=== PATIENT | male | born 1955 | race Caucasian/White ===

== ENCOUNTER → 2019-04-22 | Outpatient (CLI) | payer BC ==
--- NOTE | 2019-04-22 15:47 | CTL ---
EXAMINATION TYPE: CT Low Dose Lung DATE OF EXAM ORDERED: 04/22/2019 HISTORY: 64-year-old male Personal hx of tobacco use. Lung cancer screening CT DLP: 128.[address] CTDI: 3.6 mGy Automated exposure control for dose reduction was used. SCREENING VISIT: Baseline COMPARISON: None TECHNIQUE: Low dose computed tomography scan was performed through the chest at 1 mm thick sections a nd reconstructed images in the coronal/sagittal plane. Additional coronal MIP reconstruction performe d. CT DIAGNOSTIC QUALITY: Satisfactory FINDINGS: Heart upper limits of normal in size without pericardial effusion. Coronary vessel calcifications are present and are remarkable for coronary artery disease. Ascending aorta mildly aneurysmal at 4.0 cm. Mild atherosclerotic arch calcifications with convention al arch vessel branching anatomy. Ectatic upper descending thoracic aorta at 3.2 cm. Enlarged caliber to the main right and left pulmonary arteries are 2.9 and 3.0 cm, respectively, sugg esting underlying pulmonary arterial hypertension. No thoracic lymphadenopathy by CT size criteria. Mild centrilobular emphysema and mild diffuse bronchial wall thickening. 3 mm right upper lobe pulmonary nodule, axial image 108. 4 mm subpleural pulmonary nodule posterior left upper lobe, axial image 53. 5 mm subpleural pulmonary nodule peripheral left lower lobe, axial image 166. No consolidation or pleural effusion. Visualized upper abdomen shows low attenuation of the hepatic parenchyma. Bones: Endplate spondylosis mid to lower thoracic spine. Associated mild to moderate degenerative dis c disease and scattered Schmorl's nodes. IMPRESSION: 1. Lung RADS 2 - benign; a few pulmonary nodules measuring up to 5 mm on baseline screening. 2. COPD with very mild emphysema. 3. 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 CAD. 4. Hepatic steatosis. RECOMMENDATION: 1. Continue annual low-dose lung cancer screening CT. 2. Smoking cessation. 3. Correlate with LFTs, lipid profile, and patient risk factors for hepatic steatosis. FOLLOW UP CT CHEST RECOMMENDATION: [address] LUNG RAD: Lung-Rad 2 Benign Appearance or Behavior
== END | disposition home or self-care (01) ==
LOC: RADCTMAIN 14:20
PROVIDERS: ATTEND Family Medicine
DX: Z13.83 Encounter for screening for respiratory disorder NEC (principal); J43.9 Emphysema, unspecified; I71.2 Thoracic aortic aneurysm, without rupture; I25.10 Atherosclerotic heart disease of native coronary artery without angina pectoris; I27.20 Pulmonary hypertension, unspecified; K76.0 Fatty (change of) liver, not elsewhere classified; R91.8 Other nonspecific abnormal finding of lung field; F17.210 Nicotine dependence, cigarettes, uncomplicated

== ENCOUNTER → 2023-01-07 | Outpatient (CLI) | payer MEDICARE, OTHER ==
[2023-01-07 11:44] LABS: African American GFR (CKD) >90 (>60 ml/min/1.73 sqM); Blood Urea Nitrogen 12 mg/dL (9-20); Non-African American GFR(CKD) >90 (>60 ml/min/1.73 sqM)
--- NOTE | 2023-01-07 15:19 | CT ---
EXAMINATION TYPE: CT abdomen pelvis w con DATE OF EXAM: 01/07/2023 COMPARISON: None. HISTORY: Generalized abdominal tenderness, Change in bowel habits CT DLP: 1940.30 mGycm, Automated Exposure Control for Dose Reduction was Utilized. CONTRAST: CT scan of the abdomen and pelvis is performed with oral and with IV Contrast, patient injected with 100 ml mL of Isovue 300. FINDINGS: LUNG BASES: Please refer to same day CT low-dose lung screening CT for complete details on the lung b ases. LIVER/GB: Liver is markedly hypodense consistent with fatty infiltrative hepatocellular disease. Cont racted gallbladder is present. No biliary dilatation. PANCREAS: No significant abnormality is seen. SPLEEN: No significant abnormality is seen. ADRENALS: No significant abnormality is seen. KIDNEYS: No significant abnormality is seen. BOWEL: Oral contrast reaches level of sigmoid colon. There is poor distention with moderate wall thic kening from the splenic flexure involving entire left colon through the sigmoid colon into the rectum . No significant surrounding fluid or fat stranding is seen. No free air. No mesenteric air. No well- formed fluid collection or abscess seen. PROSTATE/SEMINAL VESICLES: No gross abnormality seen. LYMPH NODES: No greater than 1cm abdominal or pelvic lymph nodes are appreciated. OSSEOUS STRUCTURES: No significant abnormality is seen. OTHER: [id number] peripheral calcified plaque of the aorta extends into branch vessels. There i s small vessel suspected left gastric artery directly originating from the abdominal aorta is sagitta l image 75, normal variant. IMPRESSION: 1. Long segment uncomplicated mild to moderate colitis from splenic flexure to rectum may be present. Differential includes infectious, inflammatory, and ischemic etiologies. Clinical correl ation and follow-up advised.
--- NOTE | 2023-01-07 15:27 | CTL ---
EXAMINATION TYPE: CT Low Dose Lung DATE OF EXAM ORDERED: 01/07/2023 HISTORY: Long-term tobacco use. Lung cancer screening CT DLP: 140.[address] CTDI: 3.90 mGy Automated exposure control for dose reduction was used. SCREENING VISIT: First after baseline COMPARISON: Prior study April 22, 2019 TECHNIQUE: Low dose computed tomography scan was performed through the chest at 1 mm thick sections a nd reconstructed images in multiple planes at 1 mm and [address] DIAGNOSTIC QUALITY: Satisfactory FINDINGS: LUNG NODULES: Present, detailed below: Few scattered small nodules redemonstrated. Stable 4 x 3 mm posterior peripheral left upper lobe nodule axial image 58. Stable 4 mm peripheral le ft lower lobe nodule axial image 181. Stable 4 mm peripheral right lower lung nodule axial image 223. No new or enlarging greater than 5 mm pulmonary nodules. LUNGS: COPD: Severity: Mild Fibrosis: Severity: None Lymph nodes: None Other findings: Ascending aorta measures up to 4.2 cm in AP diameter axial image 29 series 5. Promine nt pulmonary arteries redemonstrated suggesting underlying pulmonary artery hypertension. RIGHT PLEURAL SPACE: Effusion: None Calcification: None Thickening: None Pneumothorax: None LEFT PLEURAL SPACE: Effusion: None Calcification: None Thickening: None Pneumothorax: None HEART: Heart Size: Upper limits of normal Coronary Calcification: Moderate to severe redemonstrated Pericardial Effusion: None OTHER FINDINGS: Upper abdomen: Visualized liver is diffusely low dense consistent with fatty infiltration Bony thorax: None Supraclavicular region: None Other: None IMPRESSION: Mild emphysematous change with stable scattered small bilateral nodules redemonstrated. N o new or enlarging greater than [address] LUNG RAD AND [address] CHEST RECOMMENDATION: Lung-Rad 2 Benign Appearance or Behavior: Continue annual sc reening with LDCT in 12 months. S Modifier (other clinically significant findings): S Coronary artery calcification along with 4.2 cm ascending aortic aneurysm both redemonstrated.
== END | disposition home or self-care (01) ==
LOC: RADCTMAIN 11:01
PROVIDERS: ATTEND Family Medicine
DX: Z12.2 Encounter for screening for malignant neoplasm of respiratory organs (principal); J43.9 Emphysema, unspecified; K63.89 Other specified diseases of intestine; R10.817 Generalized abdominal tenderness; R19.15 Other abnormal bowel sounds; Z87.891 Personal history of nicotine dependence
CPT/HCPCS: 82565; 84520; 74177; 36415; 71271; Q9967